=== PATIENT | male | born 1990 | race Caucasian/White ===

== ENCOUNTER → 2016-12-15 | Outpatient (CLI) | payer MEDICARE, MEDICAID ==
[~2016-12-15] MED LIST: ABILIFY5 MG PO; ALBUTEROL0.83 MG/ML IH; ATIVAN0.5 MG PO; AURALGAN EAR DR15 ML OT; BENADRYL ALLERG1 TAB PO; BENADRYL25 M1 PO; BIAXIN 500MG T500 MG PO; GI COCKTAIL PO; MECLIZINE25 MG PO; MOTRIN800 MG PO; MVI; NEXIUM40 MG PO; NORCO 325 MG-51 TAB PO; NORTRIPTYLINE25 M1 PO; PHENERGAN 25 TA25 MG PO; PHENERGAN W/CO120 ML PO; PREVACID30 MG PO; PROTONIX 40MG T40 MG PO; VITAMIN B6; ZITHROMAX 250M250 MG PO; ZITHROMAX500 MG PO; ZOFRAN 4MG T4 MG/TAB PO; ZOFRAN ODT4 MG PO; ZOFRAN4 M1 PO; ZOFRAN8 MG PO; ZYPREXA10 MG PO
== END ==
LOC: BHSO 15:06
DX: F84.0 Autistic disorder (principal)

== ENCOUNTER 2017-04-23 21:19 | Emergency (ER) | payer MEDICARE, MEDICAID ==
[~2017-04-23] VITALS: Ht 160 cm; Wt 93.2 kg
[2017-04-23 21:21] VITALS: BP 126/70; PULSE 82; TEMP 98.5
== END 2017-04-23 23:43 | disposition home or self-care (01) ==
LOC: COL.ER 21:19
DX: S83.92XA Sprain of unspecified site of left knee, initial encounter (principal); S63.501A Unspecified sprain of right wrist, initial encounter; F84.0 Autistic disorder; K21.9 Gastro-esophageal reflux disease without esophagitis; W01.0XXA Fall on same level from slipping, tripping and stumbling without subsequent striking against object, initial encounter; Y93.01 Activity, walking, marching and hiking; Y92.096 Garden or yard of other non-institutional residence as the place of occurrence of the external cause

== ENCOUNTER → 2017-09-22 | Outpatient (CLI) | payer MEDICARE, MEDICAID | LOC: BHSO 15:25 | DX: F41.1 Generalized anxiety disorder (principal) ==

== ENCOUNTER → 2018-03-23 | Outpatient (CLI) | payer MEDICARE, MEDICAID | LOC: BHSO 15:40 | DX: F31.89 Other bipolar disorder (principal) | CPT/HCPCS: G0463 ==

== ENCOUNTER 2018-07-01 19:43 | Emergency (ER) | payer MEDICARE, MEDICAID ==
[~2018-07-01] VITALS: Ht 160 cm; Wt 97.7 kg
[2018-07-01 19:46] VITALS: BP 140/71; TEMP 97.9
[2018-07-01] MEDS ORDERED: AMOXICILLIN 8751 TAB PO (20:44)
[2018-07-01 21:10] VITALS: PULSE 101
== END 2018-07-01 21:29 | disposition home or self-care (01) ==
LOC: COL.ER 19:43
DX: J01.90 Acute sinusitis, unspecified (principal); J45.909 Unspecified asthma, uncomplicated; F41.9 Anxiety disorder, unspecified; F90.9 Attention-deficit hyperactivity disorder, unspecified type; F84.0 Autistic disorder; Z88.0 Allergy status to penicillin

== ENCOUNTER → 2018-08-03 | Outpatient (CLI) | payer MEDICARE, MEDICAID ==
[~2018-08-03] MED LIST changes: +AMOXICILLIN 8751 TAB PO
== END ==
LOC: BHSO 15:18
DX: F06.32 Mood disorder due to known physiological condition with major depressive-like episode (principal)
CPT/HCPCS: G0463

== ENCOUNTER → 2019-02-01 | Outpatient (CLI) | payer MEDICARE, MEDICAID | LOC: BHSO 15:02 | DX: F31.81 Bipolar II disorder (principal) | CPT/HCPCS: G0463 ==

== ENCOUNTER → 2019-08-02 | Outpatient (CLI) | payer MEDICARE, MEDICAID | LOC: BHSO 15:25 | DX: F31.81 Bipolar II disorder (principal) | CPT/HCPCS: G0463 ==

== ENCOUNTER → 2020-05-09 | Outpatient (CLI) | payer MEDICARE, MEDICAID | LOC: ZCOL.LAB 16:51 | DX: H92.11 Otorrhea, right ear (principal) ==

== ENCOUNTER → 2020-07-13 | Outpatient (CLI) | payer MEDICARE, MEDICAID | LOC: BHSO 14:46 | DX: F41.1 Generalized anxiety disorder (principal) | CPT/HCPCS: G0463 ==

== ENCOUNTER → 2021-11-27 | Outpatient (CLI) | payer MEDICARE, MEDICAID | LOC: ZCOL.LAB 16:40 | DX: H92.13 Otorrhea, bilateral (principal) ==

== ENCOUNTER 2022-03-11 06:40 | Emergency (ER) | payer MEDICARE, MEDICAID ==
[~2022-03-11] VITALS: Ht 157.5 cm; Wt 101.4 kg
[2022-03-11 06:45] VITALS: BP 126/77; TEMP 99.2
[2022-03-11] MEDS ORDERED: DOXYCYCLINE 10100 MG PO (06:59)
[2022-03-11 07:15] VITALS: PULSE 116
== END 2022-03-11 07:18 | disposition home or self-care (01) ==
LOC: COL.ER 06:40
DX: H66.93 Otitis media, unspecified, bilateral (principal); Z88.1 Allergy status to other antibiotic agents; Z28.310 Unvaccinated for COVID-19

== ENCOUNTER 2022-06-29 02:30 | Emergency (ER) | payer MEDICARE, MEDICAID ==
[~2022-06-29] VITALS: Ht 157.5 cm; Wt 104.5 kg
[~2022-06-29 02:30] MED LIST changes: +DOXYCYCLINE 10100 MG PO
[2022-06-29 02:38] VITALS: BP 135/71; TEMP 98.3
[2022-06-29] MEDS ORDERED: ZITHROMAX Z PA250 MG PO (02:50)
[2022-06-29 03:29] VITALS: PULSE 93
== END 2022-06-29 03:30 | disposition home or self-care (01) ==
LOC: COL.ER 02:30
DX: H66.92 Otitis media, unspecified, left ear (principal); Z28.310 Unvaccinated for COVID-19; Z88.0 Allergy status to penicillin; Z88.1 Allergy status to other antibiotic agents

== ENCOUNTER → 2023-07-21 | Outpatient (REF) | payer MEDICARE, MEDICAID ==
[~2023-07-21] MED LIST changes: +ZITHROMAX Z PA250 MG PO
== END ==
LOC: ZCOL.LAB 17:20
DX: H92.12 Otorrhea, left ear (principal)